=== PATIENT | male | born 1975 ===

== ENCOUNTER 2022-05-09 22:39 | Inpatient (IN) | payer OTHER ==
[~2022-05-09] VITALS: Ht 152.4 cm; Wt 79.4 kg
--- NOTE | 2022-05-09 23:00 | NUR ---
PACIENTE ALERTA Y ORIENTADO X3. REFIERE VENIR POR DOLOR EN EL PECHO DESDE HACE EVELYNE SEMANAS Y HOY EMPEORO. SE REALIZA EKG Y SE PRESENTA A LA DRA. LARIOS , REFIERE PUEDE SER EVALUADO POR FAST TRACK. DR. COONEY EVALUA EKG.
--- NOTE | 2022-05-10 00:29 | NUR ---
PTE MASCULINO ALERTA Y ORIENTADO X3 ES EVALUADO POR DR.D' GODOY. SE UBICA PTE EN K8, SE CONECTA A MONITOR CARDIACO Y OXIMETRIA DE PULSO CONTINUA. SE ORIENTA SOBRE ORDENES DE [place] REFIERE COMPRENDER. SE EXTRAEN MUESTRAS DE LABORATORIOS Y SE CANALIZA VENA BAJO MEDIDAS ASEPTICAS. SE ADMINISTRAN MEDICAMENTOS, BAJO MEDIDAS ASEPTICAS. SE ENTREGA ENVASE PARA COLECCION DE U/A Y SE ORIENTA. SE NOTIFICA A RADIOLOGIA PARA CT. SE GORDON PTE EN CAMA NIVEL MAS BAJO CON BARANDAS ELEVADAS Y FRENOS COLOCADOS POR SEGURIDAD.
--- NOTE | 2022-05-10 02:37 | NUR ---
PTE RE EVALUADO POR EL DR. MACIAS QUIEN ORDENA [place]. NUEVO. SE CANALIZA EN BRAZO DAVID Y SE ADMINISTRAN MEDICAMENTOS FRANCISCO ORDEN MEDICA. SE ENTREGA URINAL PARA QUE COLECTE MUESTRA.
== END 2022-05-14 10:02 | disposition designated cancer center or children's hospital (05) | DRG 282 ==
LOC: ER 22:39 → SURH 05-10 11:06 → SEC-K 05-10 11:06 → SURH 05-10 14:18
PROVIDERS: ADMIT Internal Medicine; ATTEND Internal Medicine
PROC: 4A12X4Z Monitoring of Cardiac Electrical Activity, External Approach (ICD-10-PCS; principal; 2022-05-10)
DX: I21.4 Non-ST elevation (NSTEMI) myocardial infarction (principal); I24.9 Acute ischemic heart disease, unspecified